=== PATIENT | male | born 2000 | race Caucasian/White ===

== ENCOUNTER 2020-07-27 11:19 | Emergency (ER) | payer MEDICAID, OTHER ==
[~2020-07-27] VITALS: Ht 167.6 cm; Wt 54.5 kg
[~2020-07-27 11:19] MED LIST: ACET1TAB12 PO
[2020-07-27 11:28] VITALS: BP 133/85
== END 2020-07-27 12:46 | disposition home or self-care (01) ==
LOC: ER 11:20
DX: S29.011A Strain of muscle and tendon of front wall of thorax, initial encounter (principal); Z79.899 Other long term (current) drug therapy; X58.XXXA Exposure to other specified factors, initial encounter; Y93.83 Activity, rough housing and horseplay; Y92.89 Other specified places as the place of occurrence of the external cause; Y99.8 Other external cause status
CPT/HCPCS: 99284